=== PATIENT | male | born 1970 | race Caucasian/White ===

== ENCOUNTER → 2018-05-24 | Day surgery (SDC) | payer BC ==
[~2018-05-24] MED LIST: ATENOLOL-CHLOR1 EAC1 PO; ATENOLOL/HCTZ PO; BENAZEPRIL HCL10 MG PO; DITROPAN XL5 MG PO; FENTANYL CITRATE/PF 100MCG/2 ML INJ ONE; LOSARTAN-HCTZ1 EAC2 PO; LOVASTATIN20 MG PO; MIDAZOLAM HCL 2 MG/2 ML VIAL ONE; NORCO 10-325 T1 EACH PO; OR PHACO EYE KIT ONE; PREOP PHACO EYE KIT ONE; PROZAC40 MG PO
--- OUTSIDE RECORDS SUMMARY | 2018-05-24 11:21 | XMS REPORT ---
[facility] Address Unknown Phone Unavailable Care Team Providers Care Cracker Off Name Role Phone Unavailable Unavailable Problems This patient has no known problems. Allergies, Adverse Reactions, Alerts This patient has no known allergies or adverse reactions. Medications This patient has no known medications. Encounters Start Date/Time End Date/Time Encounter Type Admission Type Attending [facility] Facility Care Department Encounter ID 2017-05-26 00:00:00 2017-05-26 00:00:00 Outpatient [facility] [id number] 2017-05-26 00:00:00 2017-05-26 00:00:00 Outpatient [facility] [id number] 2017-04-23 00:00:00 2017-04-23 00:00:00 Outpatient [facility] [id number] 2017-03-18 14:33:45 2017-03-18 14:33:45 Outpatient [facility] [id number] 2017-03-11 10:15:32 2017-03-11 10:15:32 Outpatient [facility] [id number] 2017-03-03 14:49:59 2017-03-03 14:49:59 Outpatient [facility] [id number] 2017-02-26 13:17:15 2017-02-26 13:17:15 Outpatient [facility] [id number]
[2018-05-24 13:10] VITALS: BP 110/70
== END | disposition home or self-care (01) ==
LOC: OR 11:19
PROVIDERS: ATTEND Ophthalmology
DX: H25.12 Age-related nuclear cataract, left eye (principal); I10 Essential (primary) hypertension; N20.0 Calculus of kidney; F32.9 Major depressive disorder, single episode, unspecified
CPT/HCPCS: 66984; J2250; V2632

== ENCOUNTER → 2018-06-07 | Day surgery (SDC) | payer BC ==
[2018-06-07 15:55] VITALS: BP 128/74
== END | disposition home or self-care (01) ==
LOC: OR 12:21
PROVIDERS: ATTEND Ophthalmology
DX: H25.11 Age-related nuclear cataract, right eye (principal); I10 Essential (primary) hypertension; N40.0 Benign prostatic hyperplasia without lower urinary tract symptoms; F41.8 Other specified anxiety disorders; N20.0 Calculus of kidney
CPT/HCPCS: 66984; J2250; V2632